=== PATIENT | male | born 1990 | race Caucasian/White ===

== ENCOUNTER 2018-07-07 23:13 | Emergency (ER) | payer MEDICAID ==
[~2018-07-07] VITALS: Ht 198.1 cm; Wt 157.0 kg
--- NOTE | 2018-07-07 23:27 | NUR ---
Pt ambulating in room, changed into gown, pt placed on monitors. VSS. Pt c/o N/V x 1 week, as well as lower abd pain and b/l flank pain. Pt states decreased PO intake, and decreased urinary output.
--- NOTE | 2018-07-07 23:32 | NUR ---
Medical student at bedside to evaluate pt.
[2018-07-08] MEDS ORDERED: ONDANSETRON ODT 4 MG PO ONE
[2018-07-08] MEDS ORDERED: MAALOX/HYOSCYAMINE/LIDOCAINE 45 ML BTL PO ONE
[2018-07-08] MEDS ORDERED: ONDANSETRON ODT 4 MG ONE (00:11)
[2018-07-08] MEDS ORDERED: MAALOX/HYOSCYAMINE/LIDOCAINE 45 ML BTL ONE (00:11)
--- NOTE | 2018-07-08 00:15 | NUR ---
Pt medicated per MAR. Urine sample obtained, this RN will check with MD if urine sample is needed.
[2018-07-08 00:24] LABS: BASOPHILS # (AUTO) 0.03 x10^3/uL (0-0.1); BASOPHILS % (AUTO) 1 % (0-1); EOSINOPHILS # (AUTO) 0.06 x10^3/uL (0-0.4); EOSINOPHILS % (AUTO) 1 % (1-7); LYMPHOCYTES # (AUTO) 1.56 x10^3/uL (1-3.4); LYMPHOCYTES % (AUTO) 27 % (22-44); MD NO; MEAN CORPUSCULAR HEMOGLOBIN 29.2 pg (27.5-34.5); MEAN CORPUSCULAR HGB CONC 33.8 g/dL (33.2-36.2); MEAN CORPUSCULAR VOLUME 86.5 fL (81-97); MEAN PLATELET VOLUME 9.1 fL (7.4-10.4); MONOCYTES # (AUTO) 0.52 x10^3/uL (0.2-0.8); MONOCYTES % (AUTO) 9 % (2-9); NEUTROPHILS # (AUTO) 3.55 x10^3/uL (1.8-6.8); NEUTROPHILS % (AUTO) 62 % (42-75); PLATELET COUNT 154 x10^3/uL (130-400); RED BLOOD COUNT 4.98 x10^6/uL (4.38-5.82); RED CELL DISTRIBUTION WIDTH 12.9 % (9.4-14.8)
[2018-07-08 00:35] LABS: ALANINE AMINOTRANSFERASE 22 U/L (12-78); ALBUMIN 3.8 g/dL (3.4-5.0); ANION GAP 3 mmol/L (5-15); CALCIUM 8.8 mg/dL (8.5-10.1); CHLORIDE 113 mmol/L (98-107); CREATININE 1.16 mg/dL (0.7-1.3)
[2018-07-08 00:37] LABS: ALKALINE PHOSPHATASE 72 U/L (45-117); BILIRUBIN,TOTAL 0.3 mg/dL (0.2-1.0); TOTAL PROTEIN 6.6 g/dL (6.4-8.2)
[2018-07-08 00:41] VITALS: BP 120/73
--- NOTE | 2018-07-08 00:41 | NUR ---
Pt given water for PO challenge. No urine sample needed per MD.
--- NOTE | 2018-07-08 01:08 | NUR ---
Patient/Caregiver given discharge instructions and they have confirmed that they understand the instructions. Patient ambulatory with steady gait.
== END 2018-07-08 01:08 | disposition home or self-care (01) ==
LOC: ED 07-08 00:34
DX: A08.4 Viral intestinal infection, unspecified (principal); K21.9 Gastro-esophageal reflux disease without esophagitis; G40.909 Epilepsy, unspecified, not intractable, without status epilepticus
CPT/HCPCS: 36415; 80053; 83690; 85025; 99283; Q0162

== ENCOUNTER 2018-09-04 00:49 | Emergency (ER) | payer MEDICAID ==
[~2018-09-04] VITALS: Ht 203.2 cm; Wt 164.3 kg
[2018-09-04 00:50] VITALS: BP 146/91
--- NOTE | 2018-09-04 01:49 | NUR ---
All results back. Pt up for recheck.
== END 2018-09-04 02:07 | disposition home or self-care (01) ==
LOC: ED 01:42
DX: S60.221A Contusion of right hand, initial encounter (principal); S60.511A Abrasion of right hand, initial encounter; F31.9 Bipolar disorder, unspecified; K21.9 Gastro-esophageal reflux disease without esophagitis; F17.210 Nicotine dependence, cigarettes, uncomplicated; W01.0XXA Fall on same level from slipping, tripping and stumbling without subsequent striking against object, initial encounter; Y93.89 Activity, other specified; Y92.410 Unspecified street and highway as the place of occurrence of the external cause; Y99.8 Other external cause status
CPT/HCPCS: 99283

== ENCOUNTER 2019-02-28 00:23 | Emergency (ER) | payer MEDICAID, OTHER ==
[~2019-02-28] VITALS: Ht 203.2 cm; Wt 164.0 kg
[2019-02-28 00:25] VITALS: BP 157/90
[2019-02-28] MEDS ORDERED: IBUPROFEN 600 MG TABLET PO ONE (01:00)
[2019-02-28] MEDS ORDERED: IBUPROFEN 600 MG TABLET ONE (01:04)
--- NOTE | 2019-02-28 01:10 | NUR ---
LUNCH RN: PT RESTIN GIN ROOM. REGULAR RESP. NO ACUTE DISTRESS NOTED. CALL LIGHT IN PLACE. WILL CONTINUE TO MONITOR.
== END 2019-02-28 02:19 | disposition home or self-care (01) ==
LOC: ED 00:53
DX: G89.11 Acute pain due to trauma (principal); M79.671 Pain in right foot; F17.200 Nicotine dependence, unspecified, uncomplicated; W23.1XXA Caught, crushed, jammed, or pinched between stationary objects, initial encounter; Y93.89 Activity, other specified; Y92.69 Other specified industrial and construction area as the place of occurrence of the external cause; Y99.0 Civilian activity done for income or pay
CPT/HCPCS: 99283

== ENCOUNTER 2019-09-06 18:27 | Emergency (ER) | payer OTHER ==
[~2019-09-06] VITALS: Ht 195.6 cm; Wt 174.2 kg
--- NOTE | 2019-09-06 18:33 | NUR ---
CMS not intact supervisor in charge made aware.
[2019-09-06] MEDS ORDERED: HYDROcodone/APAP 10/325 MG TABLET ONE (18:54)
[2019-09-06] MEDS ORDERED: HYDROcodone/APAP 10/325 MG TABLET PO ONE (19:00)
--- NOTE | 2019-09-06 19:20 | NUR ---
report of pt from estephania hernandes and assuming care of pt at this time. pt medicated per mar for pain. pt resting in [facility] at this time. xray results pending. pt has call light within reach.
[2019-09-06 19:41] VITALS: BP 144/78
--- NOTE | 2019-09-06 21:29 | NUR ---
pt d/c with d/c summary and doctors note. pt placed in shoulder immobilizer prior to d/c. pt denies any other needs pertaining to this visit and ambulates to registration desk with steady gait accompanied by spouse for d/c home.
== END 2019-09-06 21:35 | disposition home or self-care (01) ==
LOC: ED 21:24
DX: S43.421A Sprain of right rotator cuff capsule, initial encounter (principal); F17.200 Nicotine dependence, unspecified, uncomplicated; W01.0XXA Fall on same level from slipping, tripping and stumbling without subsequent striking against object, initial encounter; Y93.89 Activity, other specified; Y92.098 Other place in other non-institutional residence as the place of occurrence of the external cause; Y99.8 Other external cause status
CPT/HCPCS: 29105; 99284

== ENCOUNTER 2020-01-14 22:48 | Emergency (ER) | payer OTHER ==
[~2020-01-14] VITALS: Ht 195.6 cm; Wt 186.4 kg
[2020-01-14 22:52] VITALS: BP 157/95
[2020-01-14] MEDS ORDERED: LIDOCAINE-MPF 1%, 5ML INFIL ONE (23:00)
[2020-01-14] MEDS ORDERED: DIPH,PERTUSS(ACELL),TET VAC/PF 0.5 ML IM-VACC ONE ×2 (23:00→23:04)
[2020-01-14] MEDS ORDERED: LIDOCAINE-MPF 1%, 5ML ONE (23:03)
[2020-01-14] MEDS ORDERED: NEOSPORIN OINT. PKT 1 PACKET ONE (23:41)
== END 2020-01-15 00:09 | disposition home or self-care (01) ==
LOC: ED 23:12
DX: L03.221 Cellulitis of neck (principal); F17.210 Nicotine dependence, cigarettes, uncomplicated; G40.909 Epilepsy, unspecified, not intractable, without status epilepticus; Z72.9 Problem related to lifestyle, unspecified
CPT/HCPCS: 10060; 90471; 90715; 99283; 99406

== ENCOUNTER 2020-02-18 21:31 | Emergency (ER) | payer OTHER ==
[~2020-02-18] VITALS: Ht 195.6 cm; Wt 186.1 kg
[2020-02-18 21:33] VITALS: BP 140/70
[2020-02-18] MEDS ORDERED: IBUPROFEN 600 MG TABLET PO ONE (22:00)
[2020-02-18] MEDS ORDERED: OXYcodone/APAP 5/325MG TABLET PO ONE (22:00)
[2020-02-18] MEDS ORDERED: IBUPROFEN 600 MG TABLET ONE (22:03)
[2020-02-18] MEDS ORDERED: OXYcodone/APAP 5/325MG TABLET ONE (22:04)
--- NOTE | 2020-02-18 22:18 | NUR ---
pt in room, calm, right wrist is swollen, MD to see pt, and xray done at bedside. meds given.
--- NOTE | 2020-02-18 22:31 | NUR ---
ice pack placed to right wrist area per MD order. pt tolerating well.
--- NOTE | 2020-02-18 22:57 | NUR ---
right wrist thumb splint placed by EMT techs, and circulation to fingers intact, practice billing associate <2sec. follow up and discharge instructions given to pt and he understood. d/c'd without issue, ambulatory.
== END 2020-02-18 23:15 | disposition home or self-care (01) ==
LOC: ED 22:21
DX: G89.11 Acute pain due to trauma (principal); M25.531 Pain in right wrist; F17.210 Nicotine dependence, cigarettes, uncomplicated; W01.0XXA Fall on same level from slipping, tripping and stumbling without subsequent striking against object, initial encounter; Y93.89 Activity, other specified; Y92.89 Other specified places as the place of occurrence of the external cause; Y99.8 Other external cause status
CPT/HCPCS: 29125; 99284

== ENCOUNTER 2020-02-20 22:41 | Emergency (ER) | payer SELFPAY ==
[~2020-02-20] VITALS: Ht 195.6 cm; Wt 185.5 kg
[2020-02-20 23:00] VITALS: BP 164/124
--- NOTE | 2020-02-21 00:01 | NUR ---
pt sitting upright on gurney, NAD, VSS. pt denies any needs at this time. call light and personal belongings within reach.
--- NOTE | 2020-02-21 00:40 | NUR ---
Patient given discharge instructions and they have confirmed that they understand the instructions. Patient ambulatory with steady gait.
== END 2020-02-21 00:48 | disposition home or self-care (01) ==
LOC: ED 23:13
DX: M25.531 Pain in right wrist (principal); F17.210 Nicotine dependence, cigarettes, uncomplicated; W18.30XA Fall on same level, unspecified, initial encounter; Y93.89 Activity, other specified; Y92.89 Other specified places as the place of occurrence of the external cause; Y99.8 Other external cause status
CPT/HCPCS: 29125; 99283; 99406